=== PATIENT | male | born 1995 | race Caucasian/White ===

== ENCOUNTER 2017-03-12 22:54 | Emergency (ER) | payer SELFPAY ==
[~2017-03-12] VITALS: Ht 167.6 cm; Wt 60.0 kg
[2017-03-12 22:55] VITALS: BP 124/80; PULSE 86; RESP 14; TEMP 98.7; O2SAT 100
[2017-03-12] MEDS ORDERED: TOBR.3%O RIGHT EYE (23:23)
[2017-03-12] MEDS ORDERED: ACETAMINOPHEN/HYDROcodone 325 MG/5 MG TAB PO ONE (23:30)
[2017-03-12] MEDS ORDERED: TOBRAMYCIN SULFATE 0.3% OPTH OINT 3.5 GM TUBE RIGHT EYE ONE (23:30)
--- NOTE | 2017-03-12 23:30 | PD ---
HPI Chief Complaint: Eye Problems/Injury Time Seen by Provider: 23:23 Travel History International Travel<30 days: No Contact w/Intl Traveler<30days: No Traveled to known affect area: No History of Present Illness HPI 21-year-old white male presents to emergency department with complaints of right eye pain. He states that he had gotten sodium hydroxide in his right eye last evening. He states that this is been over 24 hours now. He states that he had a clog and is draining and put the sewer pipe cleaner in it. It becomes solid and he was chipping away when a small allyson went into his right eye. He states he had immediate pain. He irrigated his eye for 20 minutes with water. He felt it would get better but unfortunately over last 24 hours it has not. He presents at the recommendation of his girlfriend. He said clear tearing and occasional mucous drainage. His eye was closed shut with mucus this morning. Mild photophobia. Mild blurred vision. Mild pain. He denies any diplopia. No glasses or contacts. Up-to-date with immunizations. PFSH Past Medical History Medical History: Denies Significant Hx Diminished Hearing: No Immunizations Current: Yes Tetanus Vaccination: < 5 Years Past Surgical History Eye Surgery: Yes (lt EYE LID REPAIRED UNDER ANESTHESIA) Social History Alcohol Use: No Tobacco Use: No Substance Use: Yes (pot) Allergies-Medications (Allergen,Severity, Reaction): Coded Allergies: Motrin (Unverified Allergy, Unknown, UNKNOWN, 03/12/17) FATHER STATES PEDIATRITIAN TOLD THEM NOT TO GIVE HIM MOTRIN DUE TO SOME TYPE OF "MILD REACTION". Reported Meds & Prescriptions Reported Meds & Active Scripts Active Tobrex Opth Oint (Tobramycin Sulfate) 0.3 % Oint 1 Applic RIGHT EYE QID Review of Systems Except as stated in HPI: all other systems reviewed are Neg General / Constitutional: No: Fever, Chills Eyes: Positive: Blurred Vision, Photophobia, Drainage, Redness, Foreign Body Sensation, Pain, Tearing, Visual changes, No: Diploplia, Blind Spots, Blindness HENT: No: Headaches, Neck Pain Physical Exam Narrative GENERAL: Well-developed, well-nourished in no acute distress. Nontoxic appearing. HEAD: Normocephalic, atraumatic. EYES: Pupils equal round and reactive. Extraocular motions intact. No scleral icterus. No injection or drainage in the left eye. Right eye is injected. There is clear tearing a scant amount of mucoid drainage in the medial canthus. Alcaine is instilled in the right eye. The lids are flipped and no foreign body seen. Patient has a large area of erythema to the palpebral conjunctiva. Fluorescein stain reveals a chemical corneal abrasion at the 6:00 hour outside of the visual field over the lower conjunctiva and sclera. There is no foreign body. No obvious ulceration. ENT: TMs clear without erythema. The external auditory canals clear. Nose: clear . Posterior pharynx is pink and moist. No tonsillar edema or exudate. Uvula midline. Airway patent. NECK: Trachea midline.Supple, nontender, moves head freely. No central bony tenderness or spasm. CARDIOVASCULAR: Regular rate and rhythm without murmurs, gallops, or rubs. RESPIRATORY: Clear to auscultation. Breath sounds equal bilaterally. No wheezes , rales, or rhonchi. GASTROINTESTINAL: Abdomen soft, non-tender, nondistended. No hepato-splenomegaly , or palpable masses. No guarding. EXTREMITIES: No clubbing, cyanosis, or edema. No joint tenderness, effusion, or edema noted. BACK: Nontender without deformity or crepitance. No flank tenderness. Data Data Last Documented VS Vital Signs Date Time Temp Pulse Resp B/P Pulse Ox O2 Delivery O2 Flow Rate FiO2 03/12/17 22:55 98.7 86 14 124/80 100 Orders Eye Irrigation (03/12/17 23:21) Tobramycin 0.3% Opth Oint (Tobrex 0.3% O (03/12/17 23:30) Acetamin-Hydrocod 325-5 Mg (Only 5-325 (03/12/17 23:30) MDM Medical Decision Making Medical Screen Exam Complete: Yes Emergency Medical Condition: Yes Medical Record Reviewed: Yes Differential Diagnosis MDM: High Differential diagnoses: Acute conjunctivitis (bacterial, viral, allergic, traumatic), chemical conjunctivitis, alkali burn, acid burn, foreign body Narrative Course The patient has sustained a calculi burn to the right eye. This has occurred over 24 hours now. Alcaine is instilled in the right eye. The right eye is irrigated with a liter bolus of normal saline using a Frankie lens. Visual acuity noted on the nursing chart. Patient is given tobramycin ophthalmic ointment to the right eye. The patient is given Lortab 5 a grams by mouth. The patient is reexamined. PH in the right eye after irrigation is 7 and neutral. Additional drop of Ophthaine is instilled in the right eye. He is advised to recheck with ophthalmology ophthalmology. This is an alkali burn right eye, corneal abrasion Diagnosis Primary Impression: Alkaline chemical burn of right eye Additional Impression: Corneal abrasion, right Qualified Code: S05.01XA - Corneal abrasion, right, initial encounter Referrals: Brenda Mckeon MD 2 days Patient Instructions: General Instructions, Narcotic given in the ED Additional Instructions: Rest. Antibiotic eye ointment 4 times daily. No rubbing. Follow-up with the eye doctor in the next 1-2 days. Return to the ER if any problems. Med/Other Pt SpecificInfo: Prescription(s) given Scripts Tobramycin Opth Oint (Tobrex Opth Oint)0.3 % Oint1 Applic RIGHT EYE QID #1 TUBE Prov:Stu Fairchild MD 03/12/17 Disposition: 01 DISCHARGE HOME Condition: Stable Celio Vega Mar 12, 2017 23:30
== END 2017-03-13 00:44 | disposition home or self-care (01) ==
LOC: NEPK 22:54
DX: T26.41XA Burn of right eye and adnexa, part unspecified, initial encounter (principal); S05.01XA Injury of conjunctiva and corneal abrasion without foreign body, right eye, initial encounter; T54.3X1A Toxic effect of corrosive alkalis and alkali-like substances, accidental (unintentional), initial encounter; X58.XXXA Exposure to other specified factors, initial encounter
CPT/HCPCS: 99284